=== PATIENT | female | born 1945 | race Caucasian/White ===

== ENCOUNTER 2021-07-17 13:03 | Observation (INO) ==
[2021-07-17 16:17] LABS: ABS Eosinophils 0.1 10^3/ul (0-0.6); ABS Lymphocytes 1.7 10^3/ul (1.0-4.8); ABS Monocytes 1.1 10^3/ul (0-0.8); ABS Neutrophils 8.1 10^3/ul (1.5-7.7); Eosinophil % 0.9 %; Hematocrit 34 % (35-47); Hemoglobin 11.1 g/dL (12.0-16.0); Lymphocyte % 15.1 %; Mean Corpuscular HGB Conc 33 g/dL (31-36); Mean Corpuscular Hemoglobin 29 pg (27-31); Mean Corpuscular Volume 88 fL (80-97); Mean Platelet Volume 8.2 fL (7.4-10.4); Platelet Count 246 10^3/uL (150-450); Red Blood Count 3.88 10^6 /uL (3.70-4.87); Red Cell Distribution Width 17 % (10-15); White Blood Count 11.1 10^3/uL (3.5-10.8)
[2021-07-17 16:27] LABS: Activated Partial Thrombo Time 26.1 seconds (26.0-38.0); INR 1.06 (0.86-1.15)
[2021-07-17 16:35] LABS: Albumin 3.8 g/dL (3.2-5.2); Albumin/Globulin Ratio 1.1 (1-3); Calcium 8.9 mg/dL (8.6-10.3); Globulin 3.5 g/dL (2-4); Potassium 4.4 mmol/L (3.5-5.0); Total Bilirubin 0.6 mg/dL (0.2-1.0); Total Protein 7.3 g/dL (6.4-8.9); eGFR CKD-EPI 50.9 (>60)
[2021-07-17] MEDS ORDERED: Al Hydrox/Mg Hydrox/Simet LIQ 30 ML UDC PO PRN (18:21)
[2021-07-17] MEDS: oxyCODONE/Acetamin 5/325 mg TAB PO PRN (19:19)
[2021-07-17] MEDS ORDERED: prednisoLONE 1% OPHTH.SUSP 5 ML OPHTH.SUSP BOTH EYES SCH (21:00)
[2021-07-17] MEDS ORDERED: Heparin 5000 UNITS/ML 1 mL VIAL SUBCUT SCH (22:00)
[2021-07-17] MEDS: Cholecalciferol (VIT D3) 1,000 unit TAB PO SCH (23:15)
[2021-07-17] MEDS: prednisoLONE 1% OPHTH.SUSP 5 ML OPHTH.SUSP BOTH EYES SCH (23:15)
[2021-07-17] MEDS: Fluticasone NASAL SPRAY 50MCG 16 gm SPRAY BTL INTRANASAL SCH (23:16)
[2021-07-17] MEDS: Mometasone/Formoter 100/5 MDI INH SCH (23:16)
[2021-07-18] MEDS: Mometasone/Formoter 100/5 MDI INH SCH (07:37)
[2021-07-18] MEDS: Fluticasone NASAL SPRAY 50MCG 16 gm SPRAY BTL INTRANASAL SCH ×2 (09:27→23:20)
[2021-07-18] MEDS: oxyCODONE/Acetamin 5/325 mg TAB PO PRN (10:00)
[2021-07-18] MEDS ORDERED: ceFAZolin 2 GM PREMIX 2 GM/50 ML BAG ONE (14:21)
[2021-07-18] MEDS ORDERED: ceFAZolin 1 GM ADVAN 1 GM ADDV.VIAL IVPB ONE (14:21)
[2021-07-18] MEDS ORDERED: Lidocaine 1% MPF 5 ML VIAL ONE (14:32)
[2021-07-18] MEDS ORDERED: ROPIVACAINE 5 MG/ML 30 ML BTL (0.5%) ONE (14:32)
[2021-07-18] MEDS ORDERED: Midazolam 5 mg/5 ml VIAL 1 mg/ml 5 ml VIAL (5 mg) ONE (15:01)
[2021-07-18] MEDS ORDERED: fentaNYL 100 mcg/2 ml 50 MCG/ML VIAL ONE (15:41)
[2021-07-18] MEDS ORDERED: Ketamine HCL 50 mg/ml 10 ml VIAL (500 MG) ONE (16:30)
[2021-07-18] MEDS ORDERED: Midazolam 2 mg/2 ml VIAL 1 mg/ml 2 ml VIAL (2 mg) ONE (16:32)
[2021-07-18] MEDS ORDERED: Bupivacaine 0.25% SDV 30 ML ONE (17:08)
[2021-07-18] MEDS ORDERED: Phenylephrine IV 10 MG/ML 1 ml VIAL ONE (17:39)
[2021-07-18] MEDS ORDERED: DiMENhydriNATE IV 50 mg/ml 1 ml VIAL IV PUSH PRN (17:45)
[2021-07-18] MEDS ORDERED: HYDROmorphone 1 MG/1 ML SYRINGE IV PRN (17:45)
[2021-07-18] MEDS ORDERED: Naloxone 0.4 mg VIAL 0.4 mg/ml 1 ml VIAL IV PRN (17:45)
[2021-07-18] MEDS ORDERED: oxyCODONE/Acetamin 5/325 mg TAB PO PRN (17:45)
[2021-07-18] MEDS ORDERED: Dexamethasone IV 4 MG/ML VIAL 1 ml VIAL ONE (19:02)
[2021-07-18] MEDS ORDERED: EPHEDrine (Pressors) 50 MG/ML VIAL ONE (19:02)
[2021-07-18] MEDS ORDERED: Phenylephrine 40 mcg/mL 10mL (400mcg) SYRINGE ONE (19:02)
[2021-07-18] MEDS ORDERED: Ondansetron 4 mg VIAL 2 MG/ML 2 ml VIAL ONE (19:02)
[2021-07-18] MEDS ORDERED: Succinylcholine 200 mg VIAL 20 mg/ml 10 ml VIAL (200 mg) ONE (19:02)
[2021-07-18] MEDS ORDERED: Propofol 10 MG/ML 20 ML BTL ONE (19:02)
[2021-07-18] MEDS ORDERED: DiMENhydriNATE IV 50 mg/ml 1 ml VIAL ONE (19:02)
[2021-07-18] MEDS ORDERED: Lidocaine 2% PF 5 ML VIAL ONE (19:02)
[2021-07-18] MEDS ORDERED: ceFAZolin VIAL VIAL ONE (21:07)
[2021-07-18] MEDS ORDERED: Vancomycin 1,000 MG VIAL ONE (21:15)
[2021-07-18] MEDS: Cholecalciferol (VIT D3) 1,000 unit TAB PO SCH (23:17)
[2021-07-18] MEDS: prednisoLONE 1% OPHTH.SUSP 5 ML OPHTH.SUSP BOTH EYES SCH (23:19)
[2021-07-19] MEDS: Mometasone/Formoter 100/5 MDI INH SCH ×2 (00:54→08:39)
[2021-07-19] MEDS: ceFAZolin 1 GM in Dextrose 1 GM/50 ML BAG IVPB SCH ×2 (00:57→08:11)
[2021-07-19] MEDS: Fluticasone NASAL SPRAY 50MCG 16 gm SPRAY BTL INTRANASAL SCH (08:11)
[2021-07-19] MEDS: oxyCODONE/Acetamin 5/325 mg TAB PO PRN (08:17)
[2021-07-19] MEDS ORDERED: Aspirin EC 81 mg TAB.EC (enteric coated) PO SCH (09:00)
[2021-07-19 12:03] VITALS: BP 110/66
== END 2021-07-19 12:39 | disposition home or self-care (01) ==
LOC: ED 13:03 → EDHOLD 13:03 → SUATTDRO 18:24 → SSU 19:20
PROVIDERS: ADMIT Internal Medicine; ATTEND Internal Medicine